=== PATIENT | female | born 1985 | race Caucasian/White ===

== ENCOUNTER 2021-02-11 08:03 | Outpatient (CLI) | payer BC | END 2021-02-11 08:04 | disposition home or self-care (01) | LOC: CSHMRI 08:03 | PROVIDERS: ATTEND Neurological Surgery | DX: C71.9 Malignant neoplasm of brain, unspecified (principal); C71.1 Malignant neoplasm of frontal lobe; Z98.890 Other specified postprocedural states | CPT/HCPCS: 70553 ==

== ENCOUNTER 2022-08-21 20:36 | Observation (INO) | payer BC ==
[2022-08-21] MEDS ORDERED: Metoclopramide HCl 10 MG/2 ML VIAL ONE (21:09)
[2022-08-21] MEDS ORDERED: Famotidine/PF 20 mg/2ml Vial ONE (21:10)
[2022-08-21 21:29] LABS: #Monocytes 0.4 10x3/uL (0.0-1.1); #Neutrophils 5.5 10x3/uL (1.5-8.4); %Basophils 0.4 % (0.0-2.0); %Eosinophils 0.5 % (0.0-6.0); %Lymphocytes 28.3 % (18.0-47.0); %Monocytes 5.1 % (0.0-10.0); %Neutrophils 65.1 % (40.0-75.0); Hemoglobin 13.7 g/dL (12.0-15.5); Mean Corpuscular Volume 97.1 fl (81.6-98.3); Platelet Count 255 10x3/uL (150-450); RBC Distribution Width 12.2 % (11.5-14.5); Red Blood Cell (RBC) Count 4.15 10x6/uL (3.90-5.03); White Blood Cell (WBC) Count 8.4 10x3/uL (3.5-10.5)
[2022-08-21 21:45] LABS: Acetaminophen Less than 10.0 mcg/mL (10.0-30.0); Alcohol Less than 10 mg/dL (Less than 10); Salicylate Less than 8.0 mg/dL (15.0-30.0)
[2022-08-21 21:47] LABS: ALT (SGPT) 8 U/L (8-55); AST (SGOT) 21 U/L (5-34); Alkaline Phosphatase 112 U/L (40-110); Anion Gap 16 mmol/L (10-20); BUN (Urea Nitrogen) 9 mg/dL (7.0-18.7); Bilirubin, Total 0.3 mg/dL (0.2-1.2); Calc. Creatinine Clearance 0 mL/min (70-130); Calcium 9.4 mg/dL (7.8-10.44); Carbon Dioxide 14 mmol/L (22-29); Chloride 112 mmol/L (98-107); Estimated GFR 61; Globulin 3.4 g/dL (2.4-3.5); Glucose 138 mg/dL (70-105); Potassium 3.3 mmol/L (3.5-5.1); Protein, Total 7.4 g/dL (6.0-8.3); Sodium 139 mmol/L (136-145)
[2022-08-21 22:27] LABS: Bilirubin Neg (Negative); Blood, Urine Negative (Negative); Clarity Clear (Clear); Glucose, Urine (Dipstick) Normal (Negative); Ketone, Urine 50 mg/dL (Negative); Leukocyte Negative (Negative); Nitrite Negative (Negative); Protein, Urine (Dipstick) Negative (Neg-Trace); Urobilinogen Normal mg/dL (Less than 2)
[2022-08-21 23:08] LABS: Pregnancy Test - Urine (BHCG) Negative (Negative); Pregu Control Background? CLEAR/WHITE (CLR/WHITE); Pregu Control Bar Appear? YES (CONTROL BAR)
[2022-08-22] MEDS ORDERED: Ondansetron ODT 4 MG TAB PO PRN (00:54)
[2022-08-22] MEDS ORDERED: Acetaminophen 325 MG TAB PO PRN (00:54)
[2022-08-22] MEDS ORDERED: Ondansetron PF 4 MG/2 ML Vial IVP PRN (00:54)
[2022-08-22] MEDS ORDERED: Acetaminophen 650 MG Suppository PR PRN (00:54)
[2022-08-22 01:29] LABS: Lactic Acid 1.2 mmol/L (0.5-2.2)
[2022-08-22 03:31] LABS: #Monocytes 0.2 10x3/uL (0.0-1.1); #Neutrophils 7.3 10x3/uL (1.5-8.4); %Basophils 0.1 % (0.0-2.0); %Monocytes 2.1 % (0.0-10.0); %Neutrophils 85.5 % (40.0-75.0); Hemoglobin 13.3 g/dL (12.0-15.5); Mean Corpuscular HGB CONC 34.7 g/dL (32.0-36.0); Mean Corpuscular Hemoglobin 33.2 pg (27.0-33.0); Mean Corpuscular Volume 95.5 fl (81.6-98.3); Mean Platelet Volume 9.9 fl (7.4-10.4); Platelet Count 319 10x3/uL (150-450); RBC Distribution Width 12.3 % (11.5-14.5); Red Blood Cell (RBC) Count 4.01 10x6/uL (3.90-5.03); White Blood Cell (WBC) Count 8.6 10x3/uL (3.5-10.5)
[2022-08-22] MEDS ORDERED: Electrolyte Replacement Protocol FS SCH (05:00)
[2022-08-22 05:10] LABS: Anion Gap 13 mmol/L (10-20); BUN (Urea Nitrogen) 8 mg/dL (7.0-18.7); Calc. Creatinine Clearance 0 mL/min (70-130); Calcium 9.2 mg/dL (7.8-10.44); Carbon Dioxide 18 mmol/L (22-29); Chloride 114 mmol/L (98-107); Estimated GFR 80; Glucose 117 mg/dL (70-105); Potassium 3.7 mmol/L (3.5-5.1); Sodium 141 mmol/L (136-145)
[2022-08-22] MEDS: Sodium Chloride 0.9% 1,000 ML IV SCH ×2 (05:23→16:05)
[2022-08-22 05:51] LABS: Magnesium 1.9 mg/dL (1.6-2.6)
[2022-08-22] MEDS ORDERED: Magnesium 2 GM/50 ML(in water) 2 GM in Premix Bag 1 BAG IVPB SCH (06:00)
[2022-08-22] MEDS ORDERED: Magnesium 2 GM/50 ML BAG (IN WATER) ONE (08:00)
[2022-08-22] MEDS ORDERED: Enoxaparin Sodium 40 MG/0.4 ML SYRINGE ONE (08:00)
[2022-08-22] MEDS: Enoxaparin Sodium 40 MG/0.4 ML SYRINGE SC SCH (08:16)
[2022-08-22] MEDS ORDERED: levETIRAcetam in NS 2,000 MG in Premix Bag 1 BAG IVPB SCH (09:00)
[2022-08-22] MEDS ORDERED: Lacosamide 200 MG in Sodium Chloride 0.9% 50 ML IVPB SCH (09:00)
[2022-08-22] MEDS ORDERED: Lacosamide 50 mg Tablet PO SCH ×2 (09:30→10:30)
[2022-08-22] MEDS ORDERED: levETIRAcetam 500 MG TAB ONE (10:06)
[2022-08-22] MEDS ORDERED: Zonisamide 100 MG CAP PO SCH ×2 (10:30→21:00)
[2022-08-22] MEDS ORDERED: levETIRAcetam 500 MG TAB PO SCH (10:30)
[2022-08-22 12:44] VITALS: BMI 35.6
[2022-08-22] MEDS: Lacosamide 50 mg Tablet PO SCH ×2 (16:04→20:32)
[2022-08-22] MEDS: Topiramate 100 MG TAB PO SCH (20:33)
[2022-08-22] MEDS: levETIRAcetam 500 MG TAB PO SCH (20:33)
[2022-08-23] MEDS: Sodium Chloride 0.9% 1,000 ML IV SCH ×2 (02:14→12:45)
[2022-08-23] MEDS ORDERED: Zonisamide 100 MG CAP PO SCH ×2 (09:00)
[2022-08-23] MEDS: Lacosamide 50 mg Tablet PO SCH ×2 (09:21→15:53)
[2022-08-23] MEDS: Topiramate 100 MG TAB PO SCH (09:21)
[2022-08-23] MEDS: levETIRAcetam 500 MG TAB PO SCH (09:22)
[2022-08-23] MEDS: Enoxaparin Sodium 40 MG/0.4 ML SYRINGE SC SCH (13:59)
[2022-08-23 17:27] VITALS: BP 156/93; TEMP 98.1
[2022-08-23] MEDS ORDERED: Atorvastatin Calcium 40 MG TAB PO SCH (21:00)
== END 2022-08-23 18:15 | disposition home or self-care (01) ==
LOC: CSHERS 20:36 → INTOOBSV 23:27 → CSHERHOLD 23:27 → UNDOADMOB 23:27 → CSHERHOLD 08-22 00:54 → CSHTELE 08-22 13:07
PROVIDERS: ADMIT Student in an Organized Health Care Education/Training Program; ATTEND Hospitalist
DX: G93.40 Encephalopathy, unspecified (principal); R11.2 Nausea with vomiting, unspecified; R41.82 Altered mental status, unspecified; E87.6 Hypokalemia; E87.20 Acidosis, unspecified; G40.909 Epilepsy, unspecified, not intractable, without status epilepticus; I10 Essential (primary) hypertension; Z85.841 Personal history of malignant neoplasm of brain; Z86.73 Personal history of transient ischemic attack (TIA), and cerebral infarction without residual deficits; Z86.718 Personal history of other venous thrombosis and embolism; Z79.01 Long term (current) use of anticoagulants; Z79.2 Long term (current) use of antibiotics; Z79.899 Other long term (current) drug therapy
CPT/HCPCS: 36415; 36416; 51701; 70450; 70553; 71045; 74177; 80048; 80053; 80203; 80307; 80339; 81003; 81015; 81025; 82550; 83605; 83690; 83735; 84100; 84484; 85025; 85610; 85730; 86850; 86900; 86901; 87040; 87086; 87149; 93005; 93970; 95712; 95819; 95957; 96361; 96365; 96372; 96374; 96375; 96376; A9579; C9113; G0378; G0480; J0692; J0696; J1650; J2405; J2765; J3370; J3475; J3480; J3490; J7050; J7120; Q2009; Q9967; S0028